=== PATIENT | male | born 1945 | race Caucasian/White ===

== ENCOUNTER 2020-11-22 11:58 | Emergency (ER) | payer BC, MEDICARE ==
[~2020-11-22] VITALS: Ht 188 cm; Wt 104.3 kg
[~2020-11-22 11:58] MED LIST: KEFLEX500 MG PO; TYLENOL WITH C1 EACH PO; Z.0.PROPRANOLOL HCL1
[2020-11-22] MEDS ORDERED: CASIRIVIMAB/IMDEVIMAB 10 ML VIAL IV ONE (12:30)
[2020-11-22] MEDS ORDERED: CASIRIVIMAB/IMDEVIMAB 600 ML in SODIUM CHLORIDE 0.9% 100 ML IV ONE (12:45)
[2020-11-22 13:36] VITALS: BP 148/82
== END 2020-11-22 13:37 | disposition home or self-care (01) ==
LOC: ER 12:21
DX: R05 Cough (principal); U07.1 COVID-19; I10 Essential (primary) hypertension; I25.10 Atherosclerotic heart disease of native coronary artery without angina pectoris; Z95.810 Presence of automatic (implantable) cardiac defibrillator
CPT/HCPCS: 99283